=== PATIENT | female | born 1940 | race Caucasian/White ===

== ENCOUNTER → 2016-06-27 | Outpatient (CLI) | payer OTHER ==
[2016-03-29 15:34] VITALS: BP 134/75
[~2016-06-27] MED LIST: AMOX1TAB10 PO; ASPI81TA2 PO; BYSTOLIC5 MG PO; CARV12.5 PO; CARV6.252 PO; DEXA4TAB PO; ESCI10TA PO; EXEM25TA2 PO; HYDR-971 PO; HYDR25TA9 PO; IPRA3AMP NEB; LEVO750T31 PO; LISI10TA2 PO; LISI2.5T PO; LORA0.5T PO; LORA0.5T96 PO; METO50TA2 PO; MULT-505 PO; NAPR500T3 PO; ONDA4TAB7 PO; POTA20TA12 PO; SIMV20TA3 PO; TAMO20TA PO; VERA240C2 PO; VERA240T72 PO
--- NOTE | 2016-06-30 09:01 | FMS ---
Exam performed: 2 views of the chest. Indication: COUGH Date of Service:06/27/2016 11:57 AM . Comparison : 03/26/16. Findings: PA and lateral radiographs of the chest reveal a borderline enlarged cardiomediastinal contour. Pulmonary vascularity is unremarkable. The lungs are clear. No pleural fluid is seen. The visualized osseous structures are unremarkable. Impression: 1. Radiographically normal chest.
== END | disposition home or self-care (01) ==
LOC: FMSRAD 09:56
PROVIDERS: ATTEND Physician Assistant Surgical
DX: R05 Cough (principal)
CPT/HCPCS: 71020

== ENCOUNTER → 2016-11-06 | Outpatient (CLI) | payer OTHER ==
[2016-10-21 14:45] VITALS: BP 123/79
[~2016-11-06] MED LIST changes: +ASPI-630 PO; -ASPI81TA2 PO; +CEFP100T PO; -ESCI10TA PO; +ESCITALOPRAM OX10 MG PO; +VALA500T PO
--- NOTE | 2016-11-06 16:33 | RAD ---
PET oncologic study 11/06/2016 Technique: Blood glucose prior to injection: 102 mg/dL Scan region: Skull base to mid thigh Radiopharmaceutical: F-18 FDG 13.7 mCi IV Calibration time: Start 1045 hours and finished at 1215 hours Administration time: 1050 hours on 11/06/2016 Injection site: Left antecubital Postinjection imaging delay: Scan time 1152 hours on 11/06/2016 Clinical information: Restaging; right breast cancer and endometrial cancer. Comparison: 08/16/2015 PET Attenuation correction was performed utilizing a noncontrast, nondiagnostic CT. Findings: Moderate prominence of the ventricles, sulci and basal cisterns compatible with generalized cerebral volume loss. There is low-attenuation in the periventricular white matter compatible with chronic small vessel ischemic changes. There are scattered subcentimeter lymph nodes within the neck, none of which are pathologically enlarged. There is a left superior peritracheal lymph node measuring 8 mm (series 3, image 99) which previously measured 3 mm. This focus has increased FDG activity with maximum SUV 3.24. Thyroid gland is normal in appearance. There is bibasilar scarring and/or atelectasis. There is an area of nodular thickening along the lateral left lower lobe. This area of nodularity measures approximately 14 mm in thickness and is at the lower aspect of an area of bandlike atelectasis and/or scarring. It is difficult to assess FDG activity due to adjacent metallic density resulting in artifact. There is an enlarged prevascular lymph node measuring 18 x 13 mm, measuring 5 mm on the prior PET examination from 08/16/2015 (Max SUV 8.15). Heart is borderline enlarged. Thoracic aorta is normal in course and caliber with scattered atherosclerotic calcification. Coronary vascular calcic effusions are present. No pleural effusions. No pericardial effusion. The liver max SUV 2.37. No suspicious hepatic masses. Nodular thickening of bilateral adrenal glands with increased FDG uptake (max a CT on the left 8.06 and max SUV on the right 11.4). There is a new aortocaval lymph node measuring 10 mm with elevated FDG activity (Max SUV 9.14) Gallstones are identified within the gallbladder. Atherosclerotic vascular of the abdominal aorta is present. There is physiologic radiotracer uptake in the bowel, bladder and kidneys. The left kidney is atrophic. Impression: New areas of FDG activity in the left prevascular space with an enlarged lymph node measuring 18 x 13 mm, and the left superior peritracheal region with an 8 mm lymph node, as well as a aortocaval lymph node measuring 10 mm. Thickening of the bilateral adrenal glands with increased FDG activity. Findings are suspicious for fe metastasis. There is increased nodular density in the peripheral left lower lobe. It is difficult to assess this area by PET secondary to the target density resulting in artifactual changes in the SUV. Attention on follow-up chest CT is recommended.
== END | disposition home or self-care (01) ==
LOC: PETSC 10:27
PROVIDERS: ATTEND Radiology Radiation Oncology
DX: C50.911 Malignant neoplasm of unspecified site of right female breast (principal); C54.1 Malignant neoplasm of endometrium; R59.9 Enlarged lymph nodes, unspecified
CPT/HCPCS: 78815; A9552

== ENCOUNTER → 2016-11-12 | Outpatient (CLI) | payer OTHER ==
[2016-10-21 14:45] VITALS: BP 123/79
== END | disposition home or self-care (01) ==
LOC: PMGWOUND 09:53
PROVIDERS: ATTEND Preventive Medicine Undersea and Hyperbaric Medicine
DX: S31.829A Unspecified open wound of left buttock, initial encounter (principal); F41.9 Anxiety disorder, unspecified; E78.5 Hyperlipidemia, unspecified; F32.9 Major depressive disorder, single episode, unspecified; E78.00 Pure hypercholesterolemia, unspecified; M19.90 Unspecified osteoarthritis, unspecified site; I13.0 Hypertensive heart and chronic kidney disease with heart failure and stage 1 through stage 4 chronic kidney disease, or unspecified chronic kidney disease; N18.3 Chronic kidney disease, stage 3 (moderate); I50.23 Acute on chronic systolic (congestive) heart failure; Z86.73 Personal history of transient ischemic attack (TIA), and cerebral infarction without residual deficits; Z85.41 Personal history of malignant neoplasm of cervix uteri; Z85.3 Personal history of malignant neoplasm of breast; Z85.89 Personal history of malignant neoplasm of other organs and systems; Z95.0 Presence of cardiac pacemaker; X58.XXXA Exposure to other specified factors, initial encounter; Y93.89 Activity, other specified; Y92.89 Other specified places as the place of occurrence of the external cause; Y99.8 Other external cause status
CPT/HCPCS: 97597

== ENCOUNTER → 2016-11-19 | Outpatient (CLI) | payer OTHER ==
[2016-10-21 14:45] VITALS: BP 123/79
== END | disposition home or self-care (01) ==
LOC: PMGWOUND 09:48
PROVIDERS: ATTEND Preventive Medicine Undersea and Hyperbaric Medicine
DX: S31.829D Unspecified open wound of left buttock, subsequent encounter (principal); F32.9 Major depressive disorder, single episode, unspecified; F41.9 Anxiety disorder, unspecified; E78.5 Hyperlipidemia, unspecified; I13.0 Hypertensive heart and chronic kidney disease with heart failure and stage 1 through stage 4 chronic kidney disease, or unspecified chronic kidney disease; N18.3 Chronic kidney disease, stage 3 (moderate); I50.23 Acute on chronic systolic (congestive) heart failure; M19.90 Unspecified osteoarthritis, unspecified site; M81.0 Age-related osteoporosis without current pathological fracture; E78.00 Pure hypercholesterolemia, unspecified; Z85.3 Personal history of malignant neoplasm of breast; Z95.0 Presence of cardiac pacemaker; Z86.73 Personal history of transient ischemic attack (TIA), and cerebral infarction without residual deficits; X58.XXXD Exposure to other specified factors, subsequent encounter
CPT/HCPCS: 99214